=== PATIENT | male | born 1970 | race Caucasian/White ===

== ENCOUNTER 2021-08-10 15:49 | Observation (INO) ==
[2021-08-10] MEDS ORDERED: ASPIRIN CHEW 324 MG PO STA (16:12)
[2021-08-10] MEDS ORDERED: SODIUM CHLORIDE 0.9% 500 ML IV STA (16:12)
[2021-08-10 16:20] LABS: Basophils # (auto) 0.02 K/uL (0-0.2); Basophils % (auto) 0.2 %; Eosinophils # (auto) 0.02 K/uL (0-0.5); Eosinophils % (auto) 0.2 %; Hematocrit (blood only) 50.6 % (42-52); Hemoglobin 17.6 g/dL (14.0-18.0); Immature Granulocytes # (auto) 0.02 K/uL (0.00-0.02); Immature Granulocytes % (auto) 0.2 %; Lymphocytes # (auto) 1.19 K/uL (1.2-3.4); Lymphocytes % (auto) 11.1 %; Mean Corpuscular Hemoglobin 30.2 pg (25-34); Mean Corpuscular Hgb Conc 34.8 g/dL (32-36); Mean Corpuscular Volume 86.8 fL (80-100); Mean Platelet Volume 9.8 fL (7.4-10.4); Monocytes # (auto) 0.69 K/uL (0.11-0.59); Monocytes % (auto) 6.4 %; Neutrophils % (auto) 81.9 %; Platelet Count 254 K/uL (130-400); RDW Coefficient of Variation 12.8 % (11.5-14.5); RDW Standard Deviation 40.9 fL (36.4-46.3); Red Blood Count 5.83 M/uL (4.7-6.1); White Blood Count 10.74 K/uL (4.8-10.8)
--- NOTE | 2021-08-10 16:21 | Emergency Department Note ---
History of Present Illness General Chief complaint: Chest Pain Stated complaint: Chest Pain Time Seen by Provider: 08/10/21 16:00 Source: patient Mode of arrival: EMS Limitations: no limitations History of Present Illness Maximum Pain Intensity: 4 This patient is a 51-year-old male who comes in after having episode of chest pain around 130 this afternoon while walking his dog. He was feeling fine prior he has had no recent illness fever chills cough or shortness of breath. He has not had the COVID or flu vaccine but has no exposure known. He said he felt lightheaded as well. He is started feeling shaky. He said he felt good dull pain 4-5 out of 10 it lasted several minutes. He sat down and felt better he also drank some cayenne pepper water apparently. There is no shortness of breath or pleurisy. He is not had any problems like this before. He has had no blood or melena stool no abdominal pain. He saw his doctor for a pulled muscle in his back last week and was given steroids and muscle relaxer and has no back pain or issues today. He had no nausea or vomiting. He felt a little sweaty in his hands and said that his left arm got tingly. He had no numbness or weakness in his face or leg. No headache. No trauma or injury. Home Medications Medication Instructions Recorded Confirmed Type methylprednisolone 4 mg tablets in 4 mg PO DAILY 08/10/21 08/10/21 History a dose pack Allergies Allergy/AdvReac Type Severity Reaction Status Date / Time No Known Allergies Allergy Unverified 08/10/21 16:39 Past Med/Surg History Social History Smoking Status: Unknown if ever smoked Preferred Language: Polish Feels Safe at Home: Yes Immunizations: Past medical historydenies cardiac disease. He thinks he may have had a stress test many years ago. Does not have known high blood pressure although said it was high the other day when he went to see his doctor for back pain. Denies diabetes or hypercholesteremia. Family history he said father had high blood pressure in his early 40s and may have had some heart issues as well. He is not sure Social history he does not smoke he said he smoked in high school but not since then. Denies alcohol and drug use. 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 Review of Systems A total of 10 systems reviewed and were otherwise negative Physical Exam Vital Signs Vital Signs - 24 hr 08/10/21 15:55 08/10/21 16:01 08/10/21 17:55 Temperature 37 C 36.9 C Temperature Source Oral Oral Pulse Rate 103 H Pulse Rate [Finger] 104 H 114 H Respiratory Rate 18 18 18 Respiratory Effort / Characteristics Non-Labored Respiratory Depth Normal Respiratory Pattern Regular Blood Pressure 187/115 H Blood Pressure [Right Arm] 152/104 H 157/100 H Blood Pressure Mean 139 Blood Pressure Mean [Right Arm] 120 119 Blood Pressure Position Lying Pulse Oximetry 96 98 98 Oxygen Delivery Method Room Air Room Air Room Air Sepsis Recent Fever Within 48 Hours No Sepsis New/Unexplained Change in Mental Status No Sepsis Action Taken by Nursing No Action Required General: Well developed well nourished not ill-appearing middle-age male who appears in no acute distress, breathing comfortably on room air. Normal speech HEENT: Normal cephalic atraumatic. Pupils are equal round and reactive to light. Extraocular movements are intact. Oropharynx is pink with moist mucous membranes. No swelling of the mouth lips or tongue. No facial asymmetry or droop Neck: Supple with a midline trachea. No meningeal signs or stiffness, no JVD or bruits. No Stridor. Chest: Clear to auscultation bilaterally. No wheezes or rhonchi. No increased work of breathing. Not reproducibly tender. Heart: Regular rate and rhythm without murmurs or gallops. Abdomen: Soft nontender, nondistended without rebound guarding or rigidity. Extremities: No cyanosis clubbing or edema. No calf tenderness or assymetry Spine/Back. Non tender to palpation. No CVA tenderness Skin: Good turgor without rashes. Neurologic exam: Cranial nerves two through 12 are intact. Motor and sensation are intact and symmetrical throughout. Course Administered Medications Discontinued Medications Aspirin (Aspirin Chew 324 Mg) 324 mg PO NOW STA Stop: 08/10/21 16:13 Last Admin: 08/10/21 16:21 Dose: 324 mg Documented by: [id number] Sodium Chloride (Nss) 500 mls @ 999 mls/hr IV .Q31M STA Stop: 08/10/21 16:42 Last Infusion: 08/10/21 17:16 Dose: 0 mls/hr Documented by: [id number] Admin: 08/10/21 16:21 Dose: 999 mls/hr Documented by: [id number] Medical Decision Making Differential Diagnosis Acute coronary syndrome, arrhythmia, pulmonary disease, aortic pathology, GERD, musculoskeletal, anxiety, COVID, infection, CHF, PE Medical Records Attestation: I reviewed the patient's medical records. Home Medications Current Medication List: was personally reviewed by me Laboratory Data Attestation: I reviewed the patient's lab results. Result diagrams: 08/10/21 15:18 08/10/21 15:18 Lab Results 08/10/21 08/10/21 08/10/21 Range/Units 15:18 15:18 15:18 WBC 10.74 (4.8-10.8) K/uL RBC 5.83 (4.7-6.1) M/uL Hgb 17.6 (14.0-18.0) g/dL Hct 50.6 (42-52) % MCV 86.8 (80-100) fL MCH 30.2 (25-34) pg MCHC 34.8 (32-36) g/dL RDW Std Deviation 40.9 (36.4-46.3) fL RDW Coeff of Rizwan 12.8 (11.5-14.5) % Plt Count 254 (130-400) K/uL MPV 9.8 (7.4-10.4) fL Immature Gran % (Auto) 0.2 % Neut % (Auto) 81.9 % Lymph % (Auto) 11.1 % Sanders % (Auto) 6.4 % Eos % (Auto) 0.2 % Baso % (Auto) 0.2 % Neut # (Auto) 8.80 H (1.4-6.5) K/uL Lymph # (Auto) 1.19 L (1.2-3.4) K/uL Sanders # (Auto) 0.69 H (0.11-0.59) K/uL Eos # (Auto) 0.02 (0-0.5) K/uL Baso # (Auto) 0.02 (0-0.2) K/uL Immature Gran # (Auto) 0.02 (0.00-0.02) K/uL APTT 25.6 (21.0-31.0) Seconds PTT Ratio 1.0 Sodium 132 L (136-145) mmol/L Potassium 3.2 L (3.5-5.1) mmol/L Chloride 97 L (98-107) mmol/L Carbon Dioxide 24 (21-32) mmol/L Anion Gap 11 (3-11) BUN 19 (6-23) mg/dl Creatinine 1.03 (0.6-1.4) mg/dl Est Cr Clr Drug Dosing 97.1 ml/min Est GFR ( Amer) 95.7 ml/min Est GFR (Non-Af Amer) 82.5 ml/min BUN/Creatinine Ratio 18.4 (10-20) Glucose 98 (70-99(Fasting)) mg/dl Calcium 9.4 (8.5-10.1) mg/dl Magnesium (1.7-2.4) mg/dl Total Bilirubin 0.8 (0.2-1.0) mg/dl AST 29 (13-39) U/L ALT 35 (7-52) U/L Alkaline Phosphatase 71 (34-104) U/L Troponin I < 0.03 (0-0.04) ng/ml Total Protein 8.0 (6.0-8.3) gm/dl Albumin 4.7 (3.4-5.0) gm/dl Globulin 3.3 (2.5-4.0) gm/dl Albumin/Globulin Ratio 1.4 (0.9-2) Lipase 28 (11-82) U/L SARS-CoV-2, RNA, NAAT (NEGATIVE) 08/10/21 08/10/21 Range/Units 15:52 18:48 WBC (4.8-10.8) K/uL RBC (4.7-6.1) M/uL Hgb (14.0-18.0) g/dL Hct (42-52) % MCV (80-100) fL MCH (25-34) pg MCHC (32-36) g/dL RDW Std Deviation (36.4-46.3) fL RDW Coeff of Rizwan (11.5-14.5) % Plt Count (130-400) K/uL MPV (7.4-10.4) fL Immature Gran % (Auto) % Neut % (Auto) % Lymph % (Auto) % Sanders % (Auto) % Eos % (Auto) % Baso % (Auto) % Neut # (Auto) (1.4-6.5) K/uL Lymph # (Auto) (1.2-3.4) K/uL Sanders # (Auto) (0.11-0.59) K/uL Eos # (Auto) (0-0.5) K/uL Baso # (Auto) (0-0.2) K/uL Immature Gran # (Auto) (0.00-0.02) K/uL APTT (21.0-31.0) Seconds PTT Ratio Sodium (136-145) mmol/L Potassium (3.5-5.1) mmol/L Chloride (98-107) mmol/L Carbon Dioxide (21-32) mmol/L Anion Gap (3-11) BUN (6-23) mg/dl Creatinine (0.6-1.4) mg/dl Est Cr Clr Drug Dosing ml/min Est GFR ( Amer) ml/min Est GFR (Non-Af Amer) ml/min BUN/Creatinine Ratio (10-20) Glucose (70-99(Fasting)) mg/dl Calcium (8.5-10.1) mg/dl Magnesium 1.7 (1.7-2.4) mg/dl Total Bilirubin (0.2-1.0) mg/dl AST (13-39) U/L ALT (7-52) U/L Alkaline Phosphatase (34-104) U/L Troponin I (0-0.04) ng/ml Total Protein (6.0-8.3) gm/dl Albumin (3.4-5.0) gm/dl Globulin (2.5-4.0) gm/dl Albumin/Globulin Ratio (0.9-2) Lipase (11-82) U/L SARS-CoV-2, RNA, NAAT NEGATIVE (NEGATIVE) Imaging Data Attestation: I personally reviewed and interpreted this imaging study as follows: My Impression: Chest x-rayno acute infiltrate, failure, pneumothorax Radiologist's Impression: Chest X-Ray 08/10/21 16:12 XR chest 1V portable HISTORY: 51 years-old Male Chest Pain acute atypical chest pain COMPARISON: None TECHNIQUE: Portable AP view of the chest FINDINGS: Cardiac silhouette is mildly enlarged. Mild linear subsegmental bibasilar densities suggestive of atelectasis. No pneumothorax, pleural effusion or overt pulmonary edema. Bones appear grossly intact. IMPRESSION: No acute process. ACT 112: Negative or not required by law. The above report was generated using voice recognition software. It may contain grammatical, syntax or spelling errors. Electronically signed by: Juno Jacob M.D. 08/10/2021 4:50 PM Chest CTA 08/10/21 17:03 CT angio chest dissec wo/w con HISTORY: 51 years-old Male eval for AAA/Disect acute chest pain COMPARISON: Chest radiograph of same day TECHNIQUE: CTA of the chest was obtained both with and without the use of 120 mL Optiray 320. 3-D coronal and sagittal MIPS were obtained from the axial data set and were submitted for review. All measurements were obtained according to NASCET criteria. A dose lowering technique was used consistent with the principals of VINOD. FINDINGS: CTA: The heart is normal in size. No pericardial effusion. No thoracic aortic aneurysm or dissection. There is no intramural or mediastinal hematoma. There is patency of the imaged great vessels. Unremarkable pulmonary artery. No pulmonary emboli identified. CT CHEST: Heterogeneity of the thyroid with suggested 1.3 cm right-sided thyroid nodule. No adenopathy. No pneumothorax, pleural effusion, airspace consolidation or overt pulmonary edema. There are no suspicious pulmonary nodules or masses. The central airways are patent. Mild nonspecific distal esophageal wall thickening. Hepatic steatosis. Unremarkable soft tissues. No acute fracture. Degenerative changes of the spine. IMPRESSION: 1. No acute intrathoracic abnormality. No acute aortic pathology or pulmonary thromboembolic disease. 2. Hepatic steatosis. ACT 112: Negative or not required by law. The above report was generated using voice recognition software. It may contain grammatical, syntax or spelling errors. Electronically signed by: Juno Jacob M.D. 08/10/2021 5:45 PM ECG Data Attestation: I personally reviewed and interpreted this ECG as follows: Indication: + chest pain Rate (beats per minute): 100 Rhythm: + normal sinus ECG Intervals/blocks: + Normal QRS, + Normal QT and + Normal MN ECG Webber: + Normal ECG ST segments: + Normal ST segments ECG Findings: no PACs or no PVCs Comparison ECG Date: no prior available Additional Comments: EKG #2: Sinus tachycardia 109 no significant change compared EKG #1 no ischemic changes or ectopy seen. MDM Narrative This patient comes in as described above. Is brought in by EMS after having episode of chest pain the chest pain has resolved he says he still feels a little bit lightheaded. He has stable vital signs in fact if anything is hypertensive. He has a normal neurologic exam and nothing to suggest a stroke. I was concerned by cardiac disease given his symptoms and he was placed on a athletic monitor. EKG multiple blood testing was obtained he did receive some fluids on route to give him additional 500 cc IV normal saline bolus. he was given aspirin 324 mg chewable,he did not receive any medications on route. Cardiac biomarkers were obtained as well as multiple blood testing. He was reassessed frequently. His EKG does not suggest acute coronary syndrome or arrhythmia. He was also Covid tested although his symptoms and do not sound consistent with Covid. His white blood count can back to normal and he has no fever to suggest infection or other symptoms to suggest infection. He has no significant anemia. There are no significant electrolyte or metabolic abnormalities. EKG #2 shows no change compared EKG #1 his initial troponin is negative as well. Chest x-ray does not show congestive heart failure, pneumonia, or pneumothorax. He did have some back pain a couple days ago and his blood pressures been on the elevated side and in light of this I did do a CTA to rule out dissection and aortic pathology. CAT scan was negative. Continuous cardiac monitoring: Order was placed in EMR for continuous cardiac monitoring. Upon my evaluation the patient was noted to be in normal sinus rhythm with a rate of 90 Impression & Plan Chest pain, Dizziness, Lab test negative for COVID-19 virus, Tingling of left upper extremity Discharge Plan Visit Data Chief Complaint: Chest Pain Stated Complaint: Chest Pain ED Provider: Meir Mc Discharge Problem: Chest pain, Dizziness, Lab test negative for COVID-19 virus, Tingling of left upper extremity Forms Stand Alone Forms: [employer] Prescriptions Prescriptions: No Action methylprednisolone 4 mg Tablets,Dose Pack 4 mg PO DAILY RF: 0 Referrals Referrals: PCP,NO [Physician] -
[2021-08-10 16:30] LABS: Alanine Aminotransferase 35 U/L (7-52); Albumin Globulin Ratio 1.4 (0.9-2); Albumin Level 4.7 gm/dl (3.4-5.0); Alkaline Phosphatase 71 U/L (34-104); Anion Gap 11 (3-11); Aspartate Aminotransferase 29 U/L (13-39); BUN Creatinine Ratio 18.4 (10-20); Bilirubin,Total 0.8 mg/dl (0.2-1.0); Blood Urea Nitrogen 19 mg/dl (6-23); Calcium 9.4 mg/dl (8.5-10.1); Carbon Dioxide 24 mmol/L (21-32); Chloride 97 mmol/L (98-107); Creatinine Clr Calc Pharmacy 97.1 ml/min; Est GFR (African American) 95.7 ml/min; Est GFR (Non-African American) 82.5 ml/min; Globulin 3.3 gm/dl (2.5-4.0); Glucose 98 mg/dl (70-99(Fasting)); Lipase 28 U/L (11-82); Potassium 3.2 mmol/L (3.5-5.1); Sodium 132 mmol/L (136-145)
[2021-08-10 16:31] LABS: Partial Thromboplastin Time 25.6 Seconds (21.0-31.0)
[2021-08-10 16:32] LABS: Troponin I < 0.03 ng/ml (0-0.04)
--- NOTE | 2021-08-10 16:51 | XRay Report ---
XR chest 1V portable HISTORY: 51 years-old Male Chest Pain acute atypical chest pain COMPARISON: None TECHNIQUE: Portable AP view of the chest FINDINGS: Cardiac silhouette is mildly enlarged. Mild linear subsegmental bibasilar densities suggestive of ate lectasis. No pneumothorax, pleural effusion or overt pulmonary edema. Bones appear grossly intact. IMPRESSION: No acute process. ACT 112: Negative or not required by law. The above report was generated using voice recognition software. It may contain grammatical, syntax o r spelling errors. Electronically signed by: Juno Jacob M.D. 08/10/2021 4:50 PM
--- NOTE | 2021-08-10 17:46 | CT Scan Report ---
CT angio chest dissec wo/w con HISTORY: 51 years-old Male eval for AAA/Disect acute chest pain COMPARISON: Chest radiograph of same day TECHNIQUE: CTA of the chest was obtained both with and without the use of 120 mL Optiray 320. 3-D cor onal and sagittal MIPS were obtained from the axial data set and were submitted for review. All measu rements were obtained according to NASCET criteria. A dose lowering technique was used consistent wit h the principals sirisha BROCK. FINDINGS: CTA: The heart is normal in size. No pericardial effusion. No thoracic aortic aneurysm or dissection. Ther e is no intramural or mediastinal hematoma. There is patency of the imaged great vessels. Unremarkabl e pulmonary artery. No pulmonary emboli identified. CT CHEST: Heterogeneity of the thyroid with suggested 1.3 cm right-sided thyroid nodule. No adenopathy. No pneu mothorax, pleural effusion, airspace consolidation or overt pulmonary edema. There are no suspicious pulmonary nodules or masses. The central airways are patent. Mild nonspecific distal esophageal wall thickening. Hepatic steatosis. Unremarkable soft tissues. No acute fracture. Degenerative changes of the spine. IMPRESSION: 1. No acute intrathoracic abnormality. No acute aortic pathology or pulmonary thromboembolic disease. 2. Hepatic steatosis. ACT 112: Negative or not required by law. The above report was generated using voice recognition software. It may contain grammatical, syntax o r spelling errors. Electronically signed by: Juno Jacob M.D. 08/10/2021 5:45 PM
--- NOTE | 2021-08-10 18:54 | History & Physical Report ---
Date of Service August 10, 2021 Assessment & Plan (1) Chest pain: Plan: HTN emergency This is 51-year-old male without known past medical history presented to ER with complaint of chest pain, left arm paresthesias, blurry vision today with walking, resolved with rest. In ER patient initially mildly tachycardic in low 100s, BP elevated 187/115, no hypoxia. Initial troponin negative, EKG T wave inversion in anterior lateral leads CT head without contrast was obtained after patient had already received IV contrast. No acute intracranial abnormality noted Suspect chest pain, paresthesias and blurry vision secondary to hypertension No current chest pain, shortness of breath, visual disturbance, paresthesias or weakness TSH pending Repeat EKG in am Will trend troponin Echo lipid panel in am, start atorvastatin start aspirin start carvedilol monitor BP Nitro prn CP and repeat EKG for CP Cardiology consult Hypokalemia: K: 3.2. Mag: WNL Replace and monitor Abnormal CT CT chest: Heterogeneity of the thyroid with suggested 1.3 cm right-sided thyroid nodule, hepatic steatosis Will need follow-up with PCP DVT Prophylaxis Lovenox SQ Full Code as per discussion with pt Follows with Dr Edison Minor for routine care Pt was seen and care coordinated with Dr Gaitan. See addendum History of Present Illness Chief Complaint: CP Primary Care Provider: EDISON VELA This is 51-year-old male without known past medical history presented to ER with complaint of chest pain today. Patient states woke up this morning and felt a little lightheaded with getting up. Reports he walked his dog and while he was walking he developed left-sided chest pain described as dull aching along with tingling sensation to left arm. He states he sat down and symptoms improved. He does not believe he was short of breath or diaphoretic. He does state he had some blurry vision. Patient presented to ER and denies any current shortness of breath, chest pain, visual disturbance, headache, paresthesias or weakness. Patient states last week felt like he pulled a muscle in his upper back and was having discomfort between his shoulder blades. He reports following up with his PCP and was given Medrol Dosepak and symptoms have resolved. Denies any back pain currently. Denies any trauma. Denies fever/chills, N/V/D/C, MCCABE, syncope, neck pain, , orthopnea, palpitations, cough, sore throat, choking, otalgia, rhinorrhea, abdominal pain, extremity weakness, extremity edema, rashes, urinary symptoms. Allergies Allergy/AdvReac Type Severity Reaction Status Date / Time No Known Allergies Allergy Unverified 08/10/21 16:39 Home Medications Medication Instructions Recorded Confirmed Type methylprednisolone 4 mg tablets in 4 mg PO DAILY 08/10/21 08/10/21 History a dose pack Past Med/Surg History Medical History (Updated 08/10/21 @ 22:26 by Marina Parra PA-C) No significant past medical history Surgical History (Updated 08/10/21 @ 22:25 by Marina Parra PA-C) H/O hernia repair History of appendectomy Family History (Updated 08/10/21 @ 22:25 by Marina Parra PA-C) Father Hypertension Social History (Updated 08/10/21 @ 22:26 by Marina Parra PA-C) Smoking Status: Former smoker Cigarettes Per Day: smoked 1/2ppd x 8 years. Quit in ; Second Hand Exposure: No; Hx Alcohol Use: No Hx Substance Use: No Preferred Language: Indonesian Process Development Associate Required: No Beliefs That Will Affect Care: None Current Living Situation: Alone Other Information That Helps Us Care for You: No Feels Safe at Home: Yes Safety Concerns: Feels Safe At This Time Assistive Devices: None Review of Systems Review of Systems: All systems reviewed & are unremarkable except as noted in HPI & below Physical Exam Physical Exam: General: no acute distress, obese Head: normocephalic, atraumatic Eyes: PERRL, EOM's intact, conjunctiva non-injected, anicteric ENT: normal inspection external ears, nose, mucous membranes moist Neck: supple, trachea midline Lungs: clear, no respiratory distress, no wheezing/rhonchi/rales CV: RRR, rate 90, no murmur, no pretibial edema; no chest wall discoloration or rashes, non-tender to palpation Abd: normal BS, soft, non-tender Ext: no cyanosis, or erythema, no calf tenderness Neuro: A&O x 3, no focal deficits noted, normal affect Skin: warm, dry Results & Data Results & Data ([facility]) Vital Signs (Past 12 Hours) Vital Signs Temp Pulse Pulse Resp BP BP Pulse Ox 08/10/21 16:01 36.9 C 103 H 18 187/115 H 98 08/10/21 15:55 37 C 104 H 18 152/104 H 96 Laboratory Results Short CBC 08/10/21 08/10/21 08/10/21 Range/Units 15:18 15:18 20:55 WBC 10.74 (4.8-10.8) K/uL Hgb 17.6 (14.0-18.0) g/dL Hct 50.6 (42-52) % Plt Count 254 (130-400) K/uL Troponin I < 0.03 < 0.03 (0-0.04) ng/ml BMP 08/10/21 15:18 Sodium 132 L Potassium 3.2 L Chloride 97 L Carbon Dioxide 24 BUN 19 Creatinine 1.03 Glucose 98 Calcium 9.4 Cardiac Enzymes 08/10/21 08/10/21 Range/Units 15:18 20:55 Troponin I < 0.03 < 0.03 (0-0.04) ng/ml Liver Function 08/10/21 Range/Units 15:18 Total Bilirubin 0.8 (0.2-1.0) mg/dl AST 29 (13-39) U/L ALT 35 (7-52) U/L Alkaline Phosphatase 71 (34-104) U/L Albumin 4.7 (3.4-5.0) gm/dl Diagnostic Findings Chest X-Ray 08/10/21 16:12 XR chest 1V portable HISTORY: 51 years-old Male Chest Pain acute atypical chest pain COMPARISON: None TECHNIQUE: Portable AP view of the chest FINDINGS: Cardiac silhouette is mildly enlarged. Mild linear subsegmental bibasilar densities suggestive of atelectasis. No pneumothorax, pleural effusion or overt pulmonary edema. Bones appear grossly intact. IMPRESSION: No acute process. ACT 112: Negative or not required by law. The above report was generated using voice recognition software. It may contain grammatical, syntax or spelling errors. Electronically signed by: Juno Jacob M.D. 08/10/2021 4:50 PM Chest CTA 08/10/21 17:03 CT angio chest dissec wo/w con HISTORY: 51 years-old Male eval for AAA/Disect acute chest pain COMPARISON: Chest radiograph of same day TECHNIQUE: CTA of the chest was obtained both with and without the use of 120 mL Optiray 320. 3-D coronal and sagittal MIPS were obtained from the axial data set and were submitted for review. All measurements were obtained according to NASCET criteria. A dose lowering technique was used consistent with the principals of ALARA. FINDINGS: CTA: The heart is normal in size. No pericardial effusion. No thoracic aortic aneurysm or dissection. There is no intramural or mediastinal hematoma. There is patency of the imaged great vessels. Unremarkable pulmonary artery. No pulmonary emboli identified. CT CHEST: Heterogeneity of the thyroid with suggested 1.3 cm right-sided thyroid nodule. No adenopathy. No pneumothorax, pleural effusion, airspace consolidation or overt pulmonary edema. There are no suspicious pulmonary nodules or masses. The central airways are patent. Mild nonspecific distal esophageal wall thickening. Hepatic steatosis. Unremarkable soft tissues. No acute fracture. Degenerative changes of the spine. IMPRESSION: 1. No acute intrathoracic abnormality. No acute aortic pathology or pulmonary thromboembolic disease. 2. Hepatic steatosis. ACT 112: Negative or not required by law. The above report was generated using voice recognition software. It may contain grammatical, syntax or spelling errors. Electronically signed by: Juno Jacob M.D. 08/10/2021 5:[address] 08/10/21 18:53 CT head/brain wo con CLINICAL HISTORY: 51 years-old Male with blurry vision. Acute vision changes TECHNIQUE: Multiple axial CT images of the head were obtained without contrast. A dose lowering technique was utilized adhering to the principles of ALARA. CT DOSE: 614.27 mGy.cm COMPARISON: None. FINDINGS: No acute intracranial hemorrhage, midline shift, intracranial mass, hydrocephalus, territorial ischemia or abnormal extra-axial collection. The study is contrast-enhanced secondary to the CTA of the chest study obtained less than 2 hours prior. The calvarium is intact. The paranasal sinuses, mastoid air cells, and middle ear cavities are clear. IMPRESSION: 1. No acute intracranial abnormality. 2. Evaluation for subtle acute intracranial hemorrhage is limited secondary to IV contrast (a noncontrast head CT should be obtained prior to any contrast- enhanced CT studies of the same day). ACT 112: Negative or not required by law. The above report was generated using voice recognition software. It may contain grammatical, syntax or spelling errors. Electronically signed by: Juno Jacob M.D. 08/10/2021 7:28 PM (1) Chest pain Chest pain type: precordial pain Qualified Code(s): R07.2 - Precordial pain
--- NOTE | 2021-08-10 18:54 | Hospitalist Progress Note ---
Date of Service August 10, 2021 Subjective Patient was seen and evaluated in ER room B-12B. Patient with no known medical history, non smoker presents with chest pain found to have very elevated BP. Case was discussed with RAY. 1) HTN urgency -start Coreg 12.5mg BID -low salt diet 2) Chest pain -EKG shows TWI anteriolateral leads -likely due to above -admit for ACS evaluation, telemetry, serial Trop, TTE, cardiology consult -s/p aspirin in ER, continue aspirin 81mg daily, add atorvastaitn 40mg -check lipid panel, A1c in AM Results & Data Results & Data ([facility]) Vital Signs (Past 12 Hours) Vital Signs Temp Pulse Pulse Resp BP BP Pulse Ox 08/10/21 16:01 36.9 C 103 H 18 187/115 H 98 08/10/21 15:55 37 C 104 H 18 152/104 H 96
--- NOTE | 2021-08-10 19:30 | CT Scan Report ---
CT head/brain wo con CLINICAL HISTORY: 51 years-old Male with blurry vision. Acute vision changes TECHNIQUE: Multiple axial CT images of the head were obtained without contrast. A dose lowering tech nique was utilized adhering to the principles of ALARA. CT DOSE: 614.27 mGy.cm COMPARISON: None. FINDINGS: No acute intracranial hemorrhage, midline shift, intracranial mass, hydrocephalus, territorial ischem ia or abnormal extra-axial collection. The study is contrast-enhanced secondary to the CTA of the [facility] st study obtained less than 2 hours prior. The calvarium is intact. The paranasal sinuses, mastoid air cells, and middle ear cavities are clear . IMPRESSION: 1. No acute intracranial abnormality. 2. Evaluation for subtle acute intracranial hemorrhage is limited secondary to IV contrast (a noncont rast head CT should be obtained prior to any contrast-enhanced CT studies of the same day). ACT 112: Negative or not required by law. The above report was generated using voice recognition software. It may contain grammatical, syntax o r spelling errors. Electronically signed by: Juno Jacob M.D. 08/10/2021 7:28 PM
[2021-08-10] MEDS ORDERED: ACETAMINOPHEN 325 MG TAB PO PRN (20:33)
[2021-08-10] MEDS ORDERED: METOPROLOL TARTRATE 1 MG/ML VIAL IV PRN (21:41)
[2021-08-10] MEDS ORDERED: POTASSIUM CHLORIDE CRTAB 20 MEQ TABCR PO STA (22:12)
[2021-08-10] MEDS ORDERED: NITROGLYCERIN SL 0.4 MG/TAB TAB SL PRN (22:13)
[2021-08-10] MEDS ORDERED: ENOXAPARIN INJ 40 MG/0.4 ML SYR SQ SCH (22:30)
[2021-08-10 23:23] LABS: Appearance Urine Clear (Clear); Bilirubin Urine Negative (Negative); Blood Urine Negative (Negative); Color Urine Yellow; Glucose Urine UA Negative (Negative); Ketones Urine 1+ (Negative); Leukocyte Esterase Urine Negative (Negative); Nitrite Urine Negative (Negative); Protein Urine Negative (Negative); Specific Gravity Urine 1.042 (1.000-1.030); Urobilinogen Urine Negative (Negative)
[2021-08-11 03:18] LABS: Hematocrit (blood only) 45.4 % (42-52); Hemoglobin 15.5 g/dL (14.0-18.0); Mean Corpuscular Hemoglobin 30.1 pg (25-34); Mean Corpuscular Hgb Conc 34.1 g/dL (32-36); Mean Corpuscular Volume 88.2 fL (80-100); Mean Platelet Volume 9.5 fL (7.4-10.4); Platelet Count 254 K/uL (130-400); RDW Coefficient of Variation 13.2 % (11.5-14.5); RDW Standard Deviation 42.9 fL (36.4-46.3); Red Blood Count 5.15 M/uL (4.7-6.1); White Blood Count 7.85 K/uL (4.8-10.8)
[2021-08-11 03:40] LABS: Troponin I < 0.03 ng/ml (0-0.04)
[2021-08-11 03:44] LABS: Anion Gap 6 (3-11); Blood Urea Nitrogen 16 mg/dl (6-23); Calcium 8.5 mg/dl (8.5-10.1); Carbon Dioxide 27 mmol/L (21-32); Chloride 106 mmol/L (98-107); Chol HDL Ratio 3.1 (0-5); Cholesterol 129 mg/dl (0-200); Creatinine Clr Calc Pharmacy 99.7 ml/min; Est GFR (African American) 99.2 ml/min; Est GFR (Non-African American) 85.5 ml/min; Glucose 98 mg/dl (70-99(Fasting)); HDL Cholesterol 41 mg/dl; LDL Cholesterol Calculated 72 mg/dl; Potassium 3.8 mmol/L (3.5-5.1); Sodium 139 mmol/L (136-145); Triglycerides 81 mg/dl (0-150); VLDL Cholesterol 16 mg/dl (0-30)
[2021-08-11] MEDS ORDERED: ATORVASTATIN 40 MG TAB PO SCH (09:00)
[2021-08-11] MEDS ORDERED: carvediloL 12.5 MG TAB PO SCH (09:00)
[2021-08-11] MEDS ORDERED: ASPIRIN 81 MG ECTAB PO SCH (09:00)
--- NOTE | 2021-08-11 10:25 | Electrocardiogram Report ---
Test Reason : Blood Pressure : / mmHG Vent. Rate : 100 BPM Atrial Rate : 100 BPM P-R Int : 154 ms QRS Dur : 100 ms QT Int : 350 ms P-R-T Axes : 055 014 024 degrees QTc Int : 451 ms Poor data quality, interpretation may be adversely affected Normal sinus rhythm Possible Left atrial enlargement Abnormal ECG No previous ECGs available Confirmed by Pal Romo ([id number]) on 08/11/2021 10:24:55 AM Referred By: REFERRED SELF Confirmed By:Esa Romo
--- NOTE | 2021-08-11 10:27 | Electrocardiogram Report ---
Test Reason : Blood Pressure : / mmHG Vent. Rate : 109 BPM Atrial Rate : 109 BPM P-R Int : 154 ms QRS Dur : 096 ms QT Int : 352 ms P-R-T Axes : 051 001 026 degrees QTc Int : 474 ms Sinus tachycardia Nonspecific ST abnormality Otherwise normal ECG When compared with ECG of 10-AUG-2021 15:53, (unconfirmed) Inverted T waves have replaced nonspecific T wave abnormality in Anterior leads Confirmed by Pal Romo ([id number]) on 08/11/2021 10:26:52 AM Referred By: REFERRED SELF Confirmed By:Esa Romo
--- NOTE | 2021-08-11 10:31 | Cardiology Consultation ---
Date of Consultation August 11, 2021 Assessment & Plan (1) Chest pain: (2) Hypertensive urgency: (3) Family history of ischemic heart disease: (4) History of tobacco abuse: 51-year-old male seen in cardiology consultation, evaluation of exertional chest pain as detailed above. Description of symptoms concerning. EKG shows T wave flattening/changes inferiorly and anteriorly. Troponin negative x3. Hypertensive urgency noted on presentation, possibly recently exacerbated by recent steroid use. Options of management discussed. Agree with initiation of aspirin as well as antihypertensive therapy. Further inpatient evaluation recommended - stress testing versus referral for diagnostic cardiac catheterization discussed. Await resting echocardiogram interpretation (completed just prior to my evaluation). Further recommendations pending evaluation by Dr. Saenz Supervising Physician Co-Signing Physician Notes 51-year-old patient admitted with chest discomfort and near syncope. Symptoms concerning for unstable angina. No prior history of coronary disease, congestive heart failure, or dysrhythmia. Currently pain-free. Telemetry reveals sinus rhythm. PE: VSS. Gen: NAD, AAOx3, Heart: Regular rhythm, normal S1-S2, no murmur. Lungs: Clear bilateral, no rales, rhonchi, wheeze. Extremities: No edema, palpable radial pulse. neuro: No focal deficit. A/P: Agree with above AP history, physical exam, assessment and plan. Patient symptoms concerning for unstable angina. Preliminary review of echocardiogram demonstrates normal wall motion. His troponins are undetectable. Transient ischemic ECG changes noted which have normalized. Further risk stratification with stress testing versus cardiac catheterization discussed. Risks of procedure reviewed. Patient agreeable to proceed with left heart catheterization and coronary angiography. Other recommendations pending result of the study. History of Present Illness Reason for Consultation: Chest pain Requesting Physician: Marina Parra PA-C Attending Physician: Rosas History of Present Illness Cardiology Consultation Requesting Provider: Marina Parra PA-C Reason for Consultation: Chest pain Histor of Present Illness: Mr. Jasen Mead is a 51 year old male admitted to [facility] on August 10, 2021, evaluation of chest discomfort. Patient notes new onset significant left upper chest tightness that radiated into the left arm, with associated left arm numbness and tingling, feeling warm all over, blurry vision and diaphoresis while walking the dog through the [employer] sheds. Patient notes her discomfort was significant, scary. Notes sitting down with eventual resolution of symptoms. He has never experienced any discomfort like this before and has done that activity many times without difficulty. He denies cardiac history with the exception of having a heart murmur as a child. He specifically denies history of CAD, [place], CHF, arrhythmia, rheumatic fever, or scarlet fever. Blood pressure on presentation to the ER was as high as 187/115. Initial EKG revealed normal sinus rhythm at 100 bpm with left atrial enlargement, possible old septal i nfarct, anterior and inferior T wave abnormality. A second EKG on August 10, 2021 revealed sinus tachycardia 109 bpm with more pronounced T wave changes inferiorly and anteriorly. Troponin high less than 0.03 ng/mL x3. Chest x-ray on presentation showed no acute cardiopulmonary disease. The cardiac silhouette was mildly enlarged. There was mild linear subsegmental bibasilar densities suggestive of atelectasis. CT scan of the chest showed no acute intrathoracic abnormality including no acute aortic pathology or evidence of pulmonary thromboembolic disease. Hepatic steatosis noted. CT scan of the head showed no acute intracranial abnormality. White blood cell count was normal, 7.85. H&H were normal at 15.5 and 45.4 platelet count was normal at 250 4K. Chemistry panel on presentation revealed mild hyponatremia as well as hypokalemia with follow-up metabolic panel this morning revealing normal sodium (139), normokalemia at 3.8. Creatinine was normal 1.00. LDL cholesterol 72 m g/deciliter. Fall on the ice last month with resultant right lower back pain. He recently saw his PCP, Dr. Hernandes, a week or 2 ago and was given a Medrol Dosepak with improvement. [place] somewhat sick last week with mild chills, self resolving. Left lower extremity is chronically larger than the right, swelling noted with ambulation. Family History: Father is alive with? CAD. Mother is alive without cardiac issues. He has 2 brothers and sisters without cardiac issues Social History: Reformed smoker having quit after smoking for a few years in high school. Chews snuff. No alcohol. [employer], currently working in the [employer] department. Single. No children. Allergies Allergy/AdvReac Type Severity Reaction Status Date / Time No Known Allergies Allergy Unverified 08/10/21 16:39 Home Medications Medication Instructions Recorded Confirmed Type methylprednisolone 4 mg tablets in 4 mg PO DAILY 08/10/21 08/10/21 History a dose pack Patient History Medical History No significant past medical history Surgical History H/O hernia repair History of appendectomy Family History Father Hypertension Social History Smoking Status: Former smoker Cigarettes Per Day: smoked 1/2ppd x 8 years. Quit in ; Second Hand Exposure: No; Hx Alcohol Use: No Hx Substance Use: No Preferred Language: Wolof Nursing Officer Required: No Beliefs That Will Affect Care: None Current Living Situation: Alone Other Information That Helps Us Care for You: No Feels Safe at Home: Yes Safety Concerns: Feels Safe At This Time Assistive Devices: None Review of Systems Review of Systems: Complete review of system is otherwise as stated above, negative, noncontributory. Physical Exam Physical Exam: General: A&Ox3. NAD. HENT: Normocephalic. Atraumatic. Eyes: PER. Conjunctiva pink, sclera clear. Neck: No carotid bruits. No JVD. No HJR. Heart: RRR. No murmur. No rub. No gallop. PMI is nondisplaced. Lungs: Clear to auscultation. Abdomen: +BS. Soft. Nontender. No masses or organomegaly. Extremities: No clubbing, cyanosis, or significant edema. Limited neurological examination is without focal deficits. Pulses: radial=2/4, posterior tibial=2/4. Results & Data ([facility]) Vital Signs (Past 12 Hours) Vital Signs Temp Pulse Pulse Resp BP BP Pulse Ox 08/11/21 07:49 36.9 C 75 16 134/84 96 08/11/21 04:03 36.8 C 77 18 128/80 97 08/10/21 23:12 36.7 C 70 18 124/77 97 08/10/21 22:49 61 Laboratory Results Laboratory Results - last 24 hr 08/10/21 08/10/21 08/10/21 15:18 15:18 15:18 WBC 10.74 RBC 5.83 Hgb 17.6 Hct 50.6 MCV 86.8 MCH 30.2 MCHC 34.8 RDW Std Deviation 40.9 RDW Coeff of Rizwan 12.8 Plt Count 254 MPV 9.8 Immature Gran % (Auto) 0.2 Neut % (Auto) 81.9 Lymph % (Auto) 11.1 Long % (Auto) 6.4 Eos % (Auto) 0.2 Baso % (Auto) 0.2 Neut # (Auto) 8.80 H Lymph # (Auto) 1.19 L Long # (Auto) 0.69 H Eos # (Auto) 0.02 Baso # (Auto) 0.02 Immature Gran # (Auto) 0.02 APTT 25.6 PTT Ratio 1.0 Sodium 132 L Potassium 3.2 L Chloride 97 L Carbon Dioxide 24 Anion Gap 11 BUN 19 Creatinine 1.03 Est Cr Clr Drug Dosing 97.1 Est GFR ( Amer) 95.7 Est GFR (Non-Af Amer) 82.5 BUN/Creatinine Ratio 18.4 Glucose 98 Calcium 9.4 Magnesium Total Bilirubin 0.8 AST 29 ALT 35 Alkaline Phosphatase 71 Troponin I < 0.03 Total Protein 8.0 Albumin 4.7 Globulin 3.3 Albumin/Globulin Ratio 1.4 Triglycerides Cholesterol LDL Cholesterol, Calc VLDL Cholesterol, Calc HDL Cholesterol Cholesterol/HDL Ratio Lipase 28 TSH Urine Color Urine Appearance Urine pH Ur Specific [place] Urine Protein Urine Glucose (UA) Urine Ketones Urine Blood Urine Nitrite Urine Bilirubin Urine Urobilinogen Ur Leukocyte Esterase SARS-CoV-2, RNA, NAAT 08/10/21 08/10/21 08/10/21 15:18 15:52 18:48 WBC RBC Hgb Hct MCV MCH MCHC RDW Std Deviation RDW Coeff of [place]iz[place] Plt Count MPV Immature Gran % (Auto) Neut % (Auto) Lymph % (Auto) Long % (Auto) Eos % (Auto) Baso % (Auto) Neut # (Auto) Lymph # (Auto) Long # (Auto) Eos # (Auto) Baso # (Auto) Immature Gran # (Auto) APTT PTT Ratio Sodium Potassium Chloride Carbon Dioxide Anion Gap BUN Creatinine Est Cr Clr Drug Dosing Est GFR ( Amer) Est GFR (Non-Af Amer) BUN/Creatinine Ratio Glucose Calcium Magnesium 1.7 Total Bilirubin AST ALT Alkaline Phosphatase Troponin I Total Protein Albumin Globulin Albumin/Globulin Ratio Triglycerides Cholesterol LDL Cholesterol, Calc VLDL Cholesterol, Calc HDL Cholesterol Cholesterol/HDL Ratio Lipase TSH 0.779 Urine Color Urine Appearance Urine pH Ur Specific [place] Urine Protein Urine Glucose (UA) Urine Ketones Urine Blood Urine Nitrite Urine Bilirubin Urine Urobilinogen Ur Leukocyte Esterase SARS-CoV-2, RNA, NAAT NEGATIVE 08/10/21 08/10/21 08/11/21 20:55 23:10 03:04 WBC 7.85 RBC 5.15 Hgb 15.5 Hct 45.4 MCV 88.2 MCH 30.1 MCHC 34.1 RDW Std Deviation 42.9 RDW Coeff of Riz[place] 13.2 Plt Count 254 MPV 9.5 Immature Gran % (Auto) Neut % (Auto) Lymph % (Auto) Long % (Auto) Eos % (Auto) Baso % (Auto) Neut # (Auto) Lymph # (Auto) Long # (Auto) Eos # (Auto) Baso # (Auto) Immature Gran # (Auto) APTT PTT Ratio Sodium Potassium Chloride Carbon Dioxide Anion Gap BUN Creatinine Est Cr Clr Drug Dosing Est GFR ( Amer) Est GFR (Non-Af Amer) BUN/Creatinine Ratio Glucose Calcium Magnesium Total Bilirubin AST ALT Alkaline Phosphatase Troponin I < 0.03 Total Protein Albumin Globulin Albumin/Globulin Ratio Triglycerides Cholesterol LDL Cholesterol, Calc VLDL Cholesterol, Calc HDL Cholesterol Cholesterol/HDL Ratio Lipase TSH Urine Color Yellow Urine Appearance Clear Urine pH 6.0 Ur Specific [place] 1.042 H Urine Protein Negative Urine Glucose (UA) Negative Urine Ketones 1+ H Urine Blood Negative Urine Nitrite Negative Urine Bilirubin Negative Urine Urobilinogen Negative Ur Leukocyte Esterase Negative SARS-CoV-2, RNA, NAAT 08/11/21 03:04 WBC RBC Hgb Hct MCV MCH MCHC RDW Std Deviation RDW Coeff of [place] Plt Count MPV Immature Gran % (Auto) Neut % (Auto) Lymph % (Auto) Long % (Auto) Eos % (Auto) Baso % (Auto) Neut # (Auto) Lymph # (Auto) Long # (Auto) Eos # (Auto) Baso # (Auto) Immature Gran # (Auto) APTT PTT Ratio Sodium 139 Potassium 3.8 Chloride 106 Carbon Dioxide 27 Anion Gap 6 BUN 16 Creatinine 1.00 Est Cr Clr Drug Dosing 99.7 Est GFR ( Amer) 99.2 Est GFR (Non-Af Amer) 85.5 BUN/Creatinine Ratio 16.0 Glucose 98 Calcium 8.5 Magnesium Total Bilirubin AST ALT Alkaline Phosphatase Troponin I < 0.03 Total Protein Albumin Globulin Albumin/Globulin Ratio Triglycerides 81 Cholesterol 129 LDL Cholesterol, Calc 72 VLDL Cholesterol, Calc 16 HDL Cholesterol 41 Cholesterol/HDL Ratio 3.1 Lipase TSH Urine Color Urine Appearance Urine pH Ur Specific [place] Urine Protein Urine Glucose (UA) Urine Ketones Urine Blood Urine Nitrite Urine Bilirubin Urine Urobilinogen Ur Leukocyte Esterase SARS-CoV-2, RNA, NAAT Diagnostic Findings Continuous telemetry monitoring reveals sinus rhythm throughout with occasional PVCs. Rates typically in the 70s to 80s. No significant bradycardia. No atrial arrhythmias. (1) Chest pain Chest pain type: precordial pain Qualified Code(s): R07.2 - Precordial pain
--- NOTE | 2021-08-11 10:32 | Electrocardiogram Report ---
Test Reason : Blood Pressure : / mmHG Vent. Rate : 077 BPM Atrial Rate : 077 BPM P-R Int : 134 ms QRS Dur : 096 ms QT Int : 406 ms P-R-T Axes : 056 008 013 degrees QTc Int : 459 ms Normal sinus rhythm Normal ECG When compared with ECG of 10-AUG-2021 17:07, (unconfirmed) T wave inversion no longer evident in Anterior leads Confirmed by Pal Romo ([id number]) on 08/11/2021 10:32:04 AM Referred By: REFERRED SELF Confirmed By:Esa Romo
[2021-08-11 11:46] LABS: Lyme Ab IgG w/WB Rflx Negative (Negative); Lyme Ab IgM w/WB Rflx Negative (Negative)
--- NOTE | 2021-08-11 13:09 | Pre Anesthesia Assessment ---
Date of Service August 11, 2021 Pre Sedation Assessment Vital Signs Temp Pulse Pulse Resp BP BP BP 08/11/21 12:45 83 08/11/21 12:37 88 24 141/96 H 08/11/21 11:17 37.1 C 18 08/11/21 07:49 36.9 C 75 16 134/84 08/11/21 04:03 36.8 C 77 18 128/80 08/10/21 23:12 36.7 C 70 18 124/77 08/10/21 22:49 61 08/10/21 20:33 37.2 C 87 82 18 151/88 H 08/10/21 20:00 80 20 129/83 08/10/21 19:30 90 18 140/104 H 08/10/21 19:23 77 18 163/114 H 08/10/21 19:01 98 H 22 162/101 H 08/10/21 19:00 97 H 15 08/10/21 18:57 101 H 14 157/100 H 08/10/21 18:33 91 H 14 155/101 H 08/10/21 18:32 102 H 18 08/10/21 17:55 114 H 18 157/100 H 08/10/21 16:10 108 H 18 08/10/21 16:01 36.9 C 103 H 18 187/115 H 08/10/21 15:55 37 C 104 H 18 152/104 H Pulse Ox 08/11/21 12:45 08/11/21 12:37 93 08/11/21 11:17 95 08/11/21 07:49 96 08/11/21 04:03 97 08/10/21 23:12 97 08/10/21 22:49 08/10/21 20:33 98 08/10/21 20:00 97 08/10/21 19:30 100 08/10/21 19:23 99 08/10/21 19:01 97 08/10/21 19:00 97 08/10/21 18:57 98 08/10/21 18:33 98 08/10/21 18:32 97 08/10/21 17:55 98 08/10/21 16:10 100 08/10/21 16:01 98 08/10/21 15:55 96 Cardiovascular + S1 normal and + S2 normal; no murmur + radial pulses present; no JVD and no carotid bruit + edema Respiratory normal respiratory effort, lungs clear to auscultation Pre-Sedation Airway Assessment Smoking Status: Former smoker 3 Procedure Planning Contraindications for Sedation: none Current Medications Reviewed: Yes Notes The planned sedation has been discussed with the patient. Informed Consent was obtained. I have identified the patient, determined the appropriateness of sedation and have assessed the patient immediately prior to the procedure. All medicine(s) and interventions are by my order.
[2021-08-11] MEDS ORDERED: MIDAZOLAM HCL 1 MG/ML 2ML VIAL ONE (13:11)
[2021-08-11] MEDS ORDERED: niCARdipine HCL INJ 2.5 MG/ML 10 ML AMP ONE (13:11)
[2021-08-11] MEDS ORDERED: fentaNYL citrate 100 MCG/2 ML VIAL ONE (13:11)
[2021-08-11] MEDS ORDERED: HEPARIN (PORCINE) 1000 UNIT/ML 10 ML (CATH LAB USE ONLY) ONE (13:11)
[2021-08-11] MEDS ORDERED: NITROGLYCERIN/D5W 100MCG/ML 20ML SYR ONE (13:12)
--- NOTE | 2021-08-11 14:18 | Post Anesthesia Assessment ---
Date of Service August 11, 2021 Post Sedation Assessment Vital Signs Temp Pulse Pulse Resp BP BP BP 08/11/21 13:05 88 18 142/90 H 08/11/21 12:45 83 08/11/21 12:37 88 24 141/96 H 08/11/21 11:17 37.1 C 18 08/11/21 07:49 36.9 C 75 16 134/84 08/11/21 04:03 36.8 C 77 18 128/80 08/10/21 23:12 36.7 C 70 18 124/77 08/10/21 22:49 61 08/10/21 20:33 37.2 C 87 82 18 151/88 H 08/10/21 20:00 80 20 129/83 08/10/21 19:30 90 18 140/104 H 08/10/21 19:23 77 18 163/114 H 08/10/21 19:01 98 H 22 162/101 H 08/10/21 19:00 97 H 15 08/10/21 18:57 101 H 14 157/100 H 08/10/21 18:33 91 H 14 155/101 H 08/10/21 18:32 102 H 18 08/10/21 17:55 114 H 18 157/100 H 08/10/21 16:10 108 H 18 08/10/21 16:01 36.9 C 103 H 18 187/115 H 08/10/21 15:55 37 C 104 H 18 152/104 H Pulse Ox 08/11/21 13:05 20 L 08/11/21 12:45 08/11/21 12:37 93 08/11/21 11:17 95 08/11/21 07:49 96 08/11/21 04:03 97 08/10/21 23:12 97 08/10/21 22:49 08/10/21 20:33 98 08/10/21 20:00 97 08/10/21 19:30 100 08/10/21 19:23 99 08/10/21 19:01 97 08/10/21 19:00 97 08/10/21 18:57 98 08/10/21 18:33 98 08/10/21 18:32 97 08/10/21 17:55 98 08/10/21 16:10 100 08/10/21 16:01 98 08/10/21 15:55 96 Recovery Score Activity: Moves 4 extremities Respiration: Deep Breath/Cough Circulation: +/-20% PreAnes Value Consciousness: Fully Awake Oxygen Saturation: > 92% On Room Air Discharge Sedation Level of Care: Phase I Post Sedation Plan On clinical assessment, the patient appears to have tolerated the sedation without complications. Patient is recovering as anticipated. Patient will continue to be monitored by nursing and may be discharged when sedation discharge criteria are met per below protocol. Upon Completions of procedure up to 15 minutes continue every 5 minute vital signs and the P.A.R. score; then discharge to a Phase I or Fast Track to Phase II per the following guidelines: * Discharge Patient to appropriate Phase II area if PAR is 8 or greater or return to pre- procedure baseline. The post - procedure orders will be as directed. * If PAR score is less than 8 or not return to pre-procedure baseline then patient will follow Phase I monitoring till PAR is reached for Phase II. The Phase I may be done in procedure room or may call to secure a Phase I area. * If naloxone or flumazenil are used for reversal, hold in Phase I for continued monitoring from when last reversal dose was given for a minimum of 60 minutes or longer pending the nurse and/or physician discretion of patient condition before discharge to Phase II. Please call the Sedation Physician to re-evaluate and complete post-note for discharge to Phase II area. Do NOT discharge from procedure sedation or Phase 1 until post- sedation evaluation note is complete by procedure /sedation MD Sedation Discharge Instructions to be given to the patient at discharge to home.
--- NOTE | 2021-08-11 14:26 | Cardiac Catheterization ---
Cardiac Cath Procedure Full Procedure Date August 11, 2021 Pre-Procedure Diagnosis Pre-Procedure Diagnosis: Angina and Cardiothoracic Symptom AUC Score AUC Score: 7 Post-Procedure Diagnosis Post-Procedure Diagnosis: Normal Coronary Arteries and Normal Intracardiac Pressures Procedure(s) Performed Procedure(s) Performed: Coronary Angiography and Left Heart Cath Managing Jeweler Jeff Saenz DO Bilingual Recruiter(s) Heber RTJuhi Estimated Blood Loss Estimated Blood Loss: 5cc Medication(s) Medication(s): Fentanyl, Heparin, Lidocaine 1%, Nicardipine, Nitroglycerin and Versed Summary of Findings Normal coronary arteries. Normal left ventricular end-diastolic pressure. Hemodynamics Rest Ao:: 109/83/96 Final Ao: 124/79/100 LV: 121/2/11 Recommendations Recommendations: Medical Therapy and/or Counseling Specimens Specimens: None Radiation Exposure (mGy) 1140 Contrast (mls) 50 Fluids (cc crystalloids) Fluids (cc crystalloids): 155 Nss Drains Drains: N/A Anesthesia Moderate sedation. Start 1346. End 1412. Sedation Monitor: Jeannette RODRIGUEZ Procedural Complication(s) None Disposition Trimming Inspector Holding/Recovery I attest to the content of the Intraoperative Record and any orders documented therein. Any exceptions are noted below. ACC Data: Trimming Inspector Cardiac Status Clinical evaluation leading to the procedure 51-year-old patient presented to the emergency department secondary to crescendo chest pain with near syncope. Findings/symptoms concerning for unstable angina. Transient ST changes suggesting possible ischemia. CAD Presenation: Unstable angina Coronary Anatomy Dominant: Right Left Main (% Stenosis): Normal LAD (% Stenosis): Normal D1 (% Stenosis): Normal D2 (% Stenosis): Normal D3 (% Stenosis): Normal Circumflex (% Stenosis): Normal OM1 (% Stenosis): Normal OM2 (% Stenosis): Normal L PL1 (% Stenosis): Normal RCA (% Stenosis): Normal R PDA (% Stenosis): Normal R PL1 (% Stenosis): Normal R PL2 (% Stenosis): Normal Diagnostic Physicians Name: Jeff Saenz DO Closure Device Closure Device: Radial Band Recommendations: Medical Therapy and/or Counseling Intraprocedure Events Significant Disection: No Perforation: No
--- NOTE | 2021-08-11 15:49 | Discharge Summary ---
Date of Service August 11, 2021 Admission HPI Per Admitting Provider This is 51-year-old male without known past medical history presented to ER with complaint of chest pain today. Patient states woke up this morning and felt a little lightheaded with getting up. Reports he walked his dog and while he was walking he developed left-sided chest pain described as dull aching along with tingling sensation to left arm. He states he sat down and symptoms improved. He does not believe he was short of breath or diaphoretic. He does state he had some blurry vision. Patient presented to ER and denies any current shortness of breath, chest pain, visual disturbance, headache, paresthesias or weakness. Patient states last week felt like he pulled a muscle in his upper back and was having discomfort between his shoulder blades. He reports following up with his PCP and was given Medrol Dosepak and symptoms have resolved. Denies any back pain currently. Denies any trauma. Denies fever/chills, N/V/D/C, MCCABE, syncope, neck pain, , orthopnea, palpitations, cough, sore throat, choking, otalgia, rhinorrhea, abdominal pain, extremity weakness, extremity edema, rashes, urinary symptoms. Admission Exam Per Admitting Provider General: no acute distress, obese Head: normocephalic, atraumatic Eyes: PERRL, EOM's intact, conjunctiva non-injected, anicteric ENT: normal inspection external ears, nose, mucous membranes moist Neck: supple, trachea midline Lungs: clear, no respiratory distress, no wheezing/rhonchi/rales CV: RRR, rate 90, no murmur, no pretibial edema; no chest wall discoloration or rashes, non-tender to palpation Abd: normal BS, soft, non-tender Ext: no cyanosis, or erythema, no calf tenderness Neuro: A&O x 3, no focal deficits noted, normal affect Skin: warm, dry Principal Diagnosis Atypical chest pain Right-sided thyroid nodule Discharge Exam GENERAL: Alert and oriented x3. NAD, on RA. HEENT: No pallor, no icterus. Pupils equal, round and reactive to light. Oral mucosa moist. NECK: No JVD, no neck masses. HEART: S1 and S2 heard. Regular rate and rhythm. No murmur, no gallop. RESPIRATORY SYSTEM: Normal AP diameter. No accessory muscle use. No wheezing, no crackles. ABDOMEN: Soft, bowel sounds present, nontender, no distention. CENTRAL NERVOUS SYSTEM: No facial droop. Speech is clear. Obeys simple commands. Moves extremities. EXTREMITIES: No edema, no erythema seen. Discharge Data Allergies Allergy/AdvReac Type Severity Reaction Status Date / Time No Known Allergies Allergy Unverified 08/10/21 16:39 Consultations 08/10/21 18:14 ED Decision to Admit Stat 08/11/21 08:00 Consult Cardiology Routine Procedures Performed Operation Date: 08/11/21 12:30 Actual Procedures p Cath, Left with Cors and Vent - Jeff Saenz DO s Cineradiography w/Routine Exam - Jeff Saenz DO Ordered Studies 08/10/21 17:03 CT angio chest dissec wo/w con Stat 08/10/21 18:53 CT head/brain wo con Urgent 08/11/21 11:19 CL Cath Imgs for PACS use only Routine 08/11/21 13:30 US venous doppler LE Routine Hospital Course (1) Chest pain: 51-year-old male without known past medical history presented to ER 08/10 with complaint of chest pain, left arm paresthesias, blurry vision with walking, resolved with rest. He was managed for the following: #. HTN emergency #. Atypical Chest pain In ER patient initially mildly tachycardic in low 100s, BP elevated 187/115, no hypoxia. Initial troponin negative, EKG T wave inversion in anterior lateral leads CT head without contrast was obtained after patient had already received IV contrast. No acute intracranial abnormality noted Suspect chest pain, paresthesias and blurry vision secondary to hypertension No further chest pain, shortness of breath, visual disturbance, paresthesias or weakness TSH wnl Repeat EKG in am --NSR Trop trends neg Echo -- EF 60-65%, mild MR, Grade I diastolic dysfuntion lipid panel --LDL 72, lipitor DC'd Heart Cath normal, aspirin DC'd Cardiology evaluated, carvedilol dose decreased to 3.125 mg twice a day Blood pressure under control Patient okay to discharge from cardiology point of view. Patient to follow-up with primary care physician as an outpatient. Hypokalemia: Potassium replaced and WNL on the day of discharge. Abnormal CT CT chest: Heterogeneity of the thyroid with suggested 1.3 cm right-sided thyroid nodule, hepatic steatosis Will need follow-up with PCP Full Code Follows with Dr Edison Minor for routine care Patient being discharged home with following instruction at the point of discharge: Follow-up with your primary care physician within a week time. For your high blood pressure, you've been started on carvedilol 3.125 mg twice a day. Cardiology evaluated you and your cardiac cath was normal. If ongoing pain, use Tylenol as needed and follow-up with your primary care physician or contact emergency. For your right-sided thyroid nodule, recommend close follow-up with outpatient, PCP. Take medications as prescribed. Total Time Total Time Spent Total Time Spent (In Minutes): 40 Discharge Plan Discharge Items Patient Disposition: Home - Self-Care Reason For Visit: CP Discharge Diagnosis: Atypical chest pain 1.3 cm right-sided thyroid nodule Activity: Resume your previous activity Non-emergency contact: Primary Care Provider Call non-emergency contact if: you have any medication questions, your symptoms worsen and your temperature is above 101 Follow-up/Referrals: Paul Minor DO [Primary Care Provider] - Diet: Heart Healthy Addtl Attending Provider Instructions: Follow-up with your primary care physician within a week time. For your high blood pressure, you've been started on carvedilol 3.125 mg twice a day. Cardiology evaluated you and your cardiac cath was normal. If ongoing pain, use Tylenol as needed and follow-up with your primary care physician. For your right-sided thyroid nodule, recommend close follow-up with outpatient, PCP. Take medications as prescribed. Pending Studies at Discharge: No Stand-Alone Forms: [employer], Smoking Cessation Medications and DC Order Prescriptions: New carvedilol 3.125 mg Tablet 3.125 mg PO BID Qty: 60 RF: 0 acetaminophen 325 mg Tablet 650 mg PO Q8H PRN (Reason: pain) 14 Days Qty: 84 RF: 0 Discontinued methylprednisolone 4 mg Tablets,Dose Pack 4 mg PO DAILY RF: 0 Discharge Orders: Discharge Order (Routine); Ordered 08/11/21 Ordered By: Marcos Pillai Admission Data Admit Date/Time: 08/10/21 19:13 Attending Provider: Marcos Pillai Admit Provider: Peyton Gaitan Primary Care Provider: Paul Minor Other Providers: Peyton Gaitan ; Jeff Saenz
--- NOTE | 2021-08-11 16:52 | Electrocardiogram Report ---
Test Reason : Blood Pressure : / mmHG Vent. Rate : 073 BPM Atrial Rate : 073 BPM P-R Int : 140 ms QRS Dur : 100 ms QT Int : 398 ms P-R-T Axes : 046 003 009 degrees QTc Int : 438 ms Normal sinus rhythm Normal ECG When compared with ECG of 11-AUG-2021 05:52, No significant change was found Confirmed by Pal Romo ([id number]) on 08/11/2021 4:52:08 PM Referred By: REFERRED SELF Confirmed By:Esa Romo
[2021-08-11] MEDS ORDERED: carvediloL 3.125 MG TAB PO SCH (21:00)
== END 2021-08-11 16:51 | disposition home or self-care (01) ==
LOC: 2N 15:49 → ED 15:49 → SUATTDRO 19:13 → 2N 20:09